=== PATIENT | female | born 1955 | race Asian ===

== ENCOUNTER → 2018-09-19 | Outpatient (CLI) | payer MEDICARE, OTHER | END | disposition home or self-care (01) | LOC: RESP 09:09 | PROVIDERS: ATTEND Legal Medicine | DX: J44.9 Chronic obstructive pulmonary disease, unspecified (principal) | CPT/HCPCS: 94010; 94726; 94727; 94729 ==

== ENCOUNTER → 2021-10-28 | Outpatient (CLI) | payer MEDICARE, OTHER | END | disposition home or self-care (01) | LOC: RADPV 08:00 | PROVIDERS: ATTEND Legal Medicine | DX: M47.816 Spondylosis without myelopathy or radiculopathy, lumbar region (principal); I82.401 Acute embolism and thrombosis of unspecified deep veins of right lower extremity; M79.606 Pain in leg, unspecified; M54.50 Low back pain, unspecified | CPT/HCPCS: 72100; 93926; 93971 ==